=== PATIENT | male | born 1975 | race Hispanic/Latino ===

== ENCOUNTER 2019-06-05 20:29 | Emergency (ER) | payer OTHER ==
[~2019-06-05] VITALS: Ht 175.3 cm; Wt 90.7 kg
--- OUTSIDE RECORDS SUMMARY | 2019-06-05 20:32 | XMS REPORT ---
Author Author [facility] Address Unknown Phone Unavailable Care Team Providers Care Standpipe Tender Name Role Phone Maeve DYER Unavailable Unavailable Payers Payer Name Policy Type Policy Number Effective Date Expiration Date Problems This patient has no known problems. Allergies, Adverse Reactions, Alerts Allergy Name Allergy Type Status Severity Reaction(s) Onset Date Inactive Date Treating Clinician Comments ibuprofen DA Active NM 2019-04-22 00:00:00 ibuprofen DA Active U 2018-11-11 00:00:00 No Known Allergies DA Active U 2018-03-09 00:00:00 No Known Allergies DA Active U 2017-12-03 00:00:00 Medications This patient has no known medications. Encounters Start Date/Time End Date/Time Encounter Type Admission Type Attending [facility] Care Department Encounter ID 2018-08-21 22:34:00 2018-08-21 22:34:00 Emergency E [id number] Results Test Description Test Time Test Comments Text Results Atomic Results Result Comments - XR CHEST 1 V 2019-04-22 16:30:00 Patient Name: KATTY WEAVER Unit No: [id number] EXAMS: CPT CODE: [id number] XR CHEST 1 V 59703 PORTABLE CHEST April 22, 2019 9:08 AM COMMENT: COMPARISON: November 22, 2018 There is no evidence for pneumothorax. This is an expiratory examination. at 1630 Reported and signed by: Chang Boyer MD CC: Jasvir Salazar MD Technologist: MAICOL COOPER RT(R) Transcribed D/ (8640) [facility] NAME: KATTY WEAVER [address] [place] [address] PHYS: Jasvir Boggs MD : 1975 AGE: 43 SEX: M [place] [address] LOC: CAT PHONE #: [phone] EXAM DATE: 04/22/2019 STATUS: REG [facility] FAX #: [phone] RAD #: D/C DT PAGE 1 Signed Report Patient Name: KATTY WEAVER Unit No: [id number] EXAMS: CPT CODE: [id number] XR CHEST 1 V 19832 <Continued> Orig Print D/T: S: 04/22/2019 (5663) [facility] [place] [facility] NAME: REVA WEAVERE NAI [address] [place] [address] PHYS: Jasvir Boggs MD : 1975 AGE: 43 SEX: M [place] [address] LOC: CAT PHONE #: [phone] EXAM DATE: 04/22/2019 STATUS: REG [facility] FAX #: [phone] RAD #: D/C DT PAGE 2 Signed Report - XR FLUORO FOR SPINE INJ 2019-04-22 12:31:00 Patient Name: KATTY WEAVER Unit No: [id number] EXAMS: CPT CODE: [id number] XR FLUORO FOR SPINE INJ 04263 THORACIC TRANSFORAMINAL INJECTION REFERRING PHYSICIAN: PREOPERATIVE DIAGNOSIS: Degenerative thoracic disc disease POSTOPERATIVE DIAGNOSIS: Left T7 radiculopathy PROCEDURES PERFORMED: Fluoroscopically guided needle localization of the left T7 spinal nerve with transforaminal epidural steroid injection/injections. 2. Transforaminal epidurogram/epidurograms at left T7. FINDINGS: Good spread 100% relief ANTIBIOTIC: Cefazolin ESTIMATED BLOOD LOSS: Minimal ANESTHESIA: (TIVA) Total intravenous anesthetic (patient intolerant to sedatives and hypnotics) COMPLICATIONS: None DETAILS OF PROCEDURE: After obtaining stable vital signs, informed consent and IV access, with no known contraindications to proceeding, the patient was taken to the fluoroscopy suite and placed in a prone position with all extremities padded and appropriate monitors placed. A sterile prep and drape was performed over the thoracic spine. Using fluoroscopic visualization at each level the insertion site was marked for a paravertebral approach to the foramen.It should be noted that the needle was medial to the head of the rib. Using standard technique, a 27 gauge needle was advanced to the base of the pedicle. It should be noted that the needle was always medial to the head of the rib. In AP view, final positioning was obtained outside the 6 on the clock position on the pedicle. Then, 1 ml of Isovue-300 contrast was injected to produce the epidurograms. No paresthesias were elicited with needle insertion or injection and there were no signs of intravascular or intrathecal uptake. Then, 0.5 ml of 4% lidocaine was injected as a test dose with no signs of intravascular or intrathecal uptake. Next, 1 ml of 4% lidocaine and 10 mg of Decadron was injected incrementally with frequent negative aspirations. There were no signs of intravascular or intrathecal uptake. Each subsequent level was done using the same technique and medications. The patient's vital signs remained stable. The patient was taken to the PACU in good condition. at 1231 Reported and signed by: Jasvir Salazar M.D. [facility] NAME: KATTY WEAVER [address] [facility] PHYS: Jasvir Boggs MD [place], [place] [address] : 1975 AGE: 43 SEX: M LOC: JuniorDEVON PHONE #: [phone] EXAM DATE: 04/22/2019 STATUS: REG [facility] FAX #: [phone] RAD #: D/C DT PAGE 1 Signed Report (CONTINUED) Patient Name: KATTY WEAVER NAI Unit No: [id number] EXAMS: CPT CODE: [id number] XR FLUORO FOR SPINE INJ 63771 <Continued> CC: Technologist: Shivani Dominique(R) Transcribed D/ (1231) tBEAUUVD [facility] NAME: KATTY WEAVER [address] [facility] PHYS: Jasvir Boggs MD [place], [place] [address] : 1975 AGE: 43 SEX: M LOC: CAT PHONE #: [phone] EXAM DATE: 04/22/2019 STATUS: REG [place] FAX #: [phone] RAD #: D/C DT PAGE 2 Signed Report Patient Name: KATTY WEAVER Unit No: [id number] EXAMS: CPT CODE: [id number] XR FLUORO FOR SPINE INJ 78417 <Continued> Orig Print D/T: S: 04/22/2019 (1234) [facility] NAME: AKTTY WEAVER [address] [place] [address] PHYS: SRIDEVI - Jasvir Salazar MD [place] [address] : 1975 AGE: 43 SEX: M LOC: CAT PHONE #: [phone] EXAM DATE: 04/22/2019 STATUS: REG [facility] FAX #: [phone] RAD #: D/C DT PAGE 3 Signed Report - XR CHEST 1 V 2018-11-12 16:42:00 Patient Name: KATTY WEAVER Unit No: [id number] EXAMS: CPT CODE: [id number] XR CHEST 1 V 01043 PORTABLE CHEST NOVEMBER 22, 2018 8:27 AM COMMENT: COMPARISON: March 10, 2018 There is no evidence for pneumothorax. at 1642 Reported and signed by: Chang Boyer MD CC: Jasvir Salazar MD Technologist: CARLIE BABIN RT(R) Transcribed D/ (1092) tWILDA [facility] NAME: KATTY WEAVER [address] [facility] PHYS: SRIDEVI - Jasvir Salazar MD : 1975 AGE: 43 SEX: M [place] [address] LOC: CAT PHONE #: [phone] EXAM DATE: 11/12/2018 STATUS: REG [facility] FAX #: [phone] RAD #: D/C DT PAGE 1 Signed Report Patient Name: KATTY WEAVER Unit No: [id number] EXAMS: CPT CODE: [id number] XR CHEST 1 V 12083 <Continued> Orig Print D/T: S: 11/12/2018 (1645) [facility] NAME: KATTY WEAVER [address] [facility] PHYS: DOCUD - DoctorJasvir MD : 1975 AGE: 43 SEX: M [place], [place] [address] LOC: JuniorDEVON PHONE #: [phone] EXAM DATE: 11/12/2018 STATUS: REG SDC FAX #: [phone] RAD #: D/C DT PAGE 2 Signed Report - XR FLUORO FOR SPINE INJ 2018-11-12 09:00:00 Patient Name: KATTY WEAVER Unit No: [id number] EXAMS: CPT CODE: [id number] XR FLUORO FOR SPINE INJ 51565 THORACIC TRANSFORAMINAL INJECTION REFERRING PHYSICIAN: PREOPERATIVE DIAGNOSIS: Degenerative thoracic disc disease POSTOPERATIVE DIAGNOSIS: Left thoracic radiculopathy PROCEDURES PERFORMED: Fluoroscopically guided needle localization of the left T7 spinal nerve with transforaminal epidural steroid injection/injections. 2. Transforaminal epidurogram/epidurograms at left T7. FINDINGS: Concordant provocation excellent filling 100% relief ANTIBIOTIC: Cefazolin ESTIMATED BLOOD LOSS: Minimal ANESTHESIA: (TIVA) Total intravenous anesthetic (patient intolerant to sedatives and hypnotics) COMPLICATIONS: None DETAILS OF PROCEDURE: After obtaining stable vital signs, informed consent and IV access, with no known contraindications to proceeding, the patient was taken to the fluoroscopy suite and placed in a prone position with all extremities padded and appropriate monitors placed. A sterile prep and drape was performed over the thoracic spine. Using fluoroscopic visualizat ion at each level the insertion site was marked for a paravertebral approach to the foramen.It should be noted that the needle was medial to the head of the rib. Using standard technique, a 27 gauge needle was advanced to the base of the pedicle. It should be noted that the needle was always medial to the head of the rib. In AP view, final positioning was obtained outside the 6 on the clock position on the pedicle. Then, 1 ml of Isovue-300 contrast was injected to produce the epidurograms. No paresthesias were elicited with needle insertion or injection and there were no signs of intravascular or intrathecal uptake. Then, 0.5 ml of 4% lidocaine was injected as a test dose with no signs of intravascular or intrathecal uptake. Next, 1 ml of 4% lidocaine and 10 mg of Decadron was injected incrementally with frequent negative aspirations. There were no signs of intravascular or intrathecal uptake. Each subsequent level was done using the same technique and medications. The patient's vital signs remained stable. The patient was taken to the PACU in good condition. at 0900 Reported and signed by: Jasvir Salazar M.D. [facility] NAME: KATTY WEAVER [address] [facility] PHYS: Jasvir Boggs MD [place] [address] : 1975 AGE: 43 SEX: M LOC: CAT PHONE #: [phone] EXAM DATE: 11/12/2018 STATUS: REG [facility] FAX #: [phone] RAD #: D/C DT PAGE 1 Signed Report (CONTINUED) Patient Name: KATTY WEAVER Unit No: [id number] EXAMS: CPT CODE: [id number] XR FLUORO FOR SPINE INJ 36939 <Continued> CC: Technologist: Shivani Dominique(R) Transcribed D/ (899) Liban [facility] NAME: KATTY WEAVER NAI [address] [facility] PHYS: Jasvir Boggs MD [place] [id number] : 1975 AGE: 43 SEX: M LOC: CAT PHONE #: [phone] EXAM DATE: 11/12/2018 STATUS: REG [facility] FAX #: [phone] RAD #: D/C DT PAGE 2 Signed Report Patient Name: KATTY WEAVER Unit No: [id number] EXAMS: CPT CODE: [id number] XR FLUORO FOR SPINE INJ 79506 <Continued> Orig Print D/T: S: 11/12/2018 (0903) [facility] NAME: KATTY WEAVER [address] [facility] PHYS: DOCUD - Doctor,Jasvir Li MD [place], [place] [address] : 1975 AGE: 43 SEX: M LOC: CAT PHONE #: [phone] EXAM DATE: 11/12/2018 STATUS: REG [facility]C FAX #: [phone] RAD #: D/C DT PAGE 3 Signed Report KNEE LEFT THREE VIEWS [place] [address] Patient Name: KATTY WEAVER MR #: [id number] : 1975 Age/Sex: 41/M Req #: [id number] [facility] Physician: Ordered by: LORNA DYER MD Report #: [id number] Location: ER Room/Bed: Procedure: [id number] DX/KNEE LEFT THREE VIEWS Exam Date: 12/02/16 Exam Time: 1035 REPORT STATUS: Signed PROCEDURE: X-RAY LEFT KNEE, THREE OR MORE VIEWS COMPARISON: None. INDICATIONS: TWISTED LEFT KNEE, PAIN FINDINGS: The bones are well-mineralized. There are no acute, displaced fractures, subluxations, lytic or blastic lesions. Joint spaces are well-preserved. There is no evidence of a joint effusion. CONCLUSION: Unremarkable left knee radiograph. Preliminary report provided by Dr. Rose 12/02/2016 at 1104 hrs. Dwain Rose M.D. Dictated by: Dwain Rose M.D. on 12/03/2016 at 13:48 Electronically approved by: Dwain Rose M.D. on 12/03/2016 at 13:48 Dictated By: DWAIN ROSE MD 1348 Transcribed By: SHADE on 12/03/16 1341 COPY TO: LORNA DYER MD
[2019-06-05] MEDS ORDERED: SODIUM CHLORIDE 0.9% 1000ML 1,000 ML IV STA (20:51)
[2019-06-05] MEDS ORDERED: HYDROCODONE/APAP 5MG-325MG TAB PO ONE (21:00)
[2019-06-05] MEDS ORDERED: KETOROLAC TROMETHAMINE 30 MG/ML VIAL IV ONE (21:00)
[2019-06-05] MEDS ORDERED: ONDANSETRON HCL INJ 2MG/ML 2ML 2 MG/ML VIAL IV ONE (21:00)
[2019-06-05] MEDS ORDERED: KETOROLAC TROMETHAMINE 30 MG/ML VIAL ONE (21:04)
[2019-06-05] MEDS ORDERED: ONDANSETRON HCL INJ 2MG/ML 2ML 2 MG/ML VIAL ONE (21:04)
[2019-06-05] MEDS ORDERED: SODIUM CHLORIDE 0.9% 1000ML 1,000 ML ONE (21:04)
[2019-06-05] MEDS ORDERED: HYDROCODONE/APAP 5MG-325MG TAB ONE (21:04)
--- NOTE | 2019-06-05 21:16 | Diagnostic Imaging Report ---
EXAMINATION: PA and lateral views of the chest. COMPARISON: None CLINICAL HISTORY: Cough, fever DISCUSSION: Lungs are well-inflated. Patchy left lower lobe airspace disease laterally. No pleural effusion or pneumothorax. Tortuous thoracic aorta. Normal heart size. No pulmonary edema. No acute osseous abnormalities. IMPRESSION: Patchy left lower lobe airspace disease is concerning for pneumonia in the clinical setting of cough and fever. Follow-up chest radiograph in 8 weeks is suggested to document resolution after appropriate treatment. Signed by: Dr. Олег Mcclure M.D. on 06/05/2019 9:13 PM
[2019-06-05] MEDS ORDERED: CEFTRIAXONE SOD 1 GM VIAL IV ONE (21:30)
== END 2019-06-05 21:55 | disposition home or self-care (01) ==
LOC: FSED 20:29
DX: R50.9 Fever, unspecified (principal); R05 Cough; J09.X1 Influenza due to identified novel influenza A virus with pneumonia; J15.9 Unspecified bacterial pneumonia
CPT/HCPCS: 71046; 80053; 85025; 99284; J1885; J2405; J7030

== ENCOUNTER 2024-04-01 10:14 | Emergency (ER) | payer OTHER ==
[~2024-04-01 10:14] MED LIST: DOXYCYCLINE HY100 MG PO; KETOROLAC TROME10 MG PO
[2024-04-01 11:28] LABS: BASOPHILS % 0.5 % (0.0-1.0); EOSINOPHILS # (AUTO) 0.3 (0.0-0.4); EOSINOPHILS % 4.1 % (0.0-6.0); HEMOGLOBIN 17.2 g/dL (14.0-18.0); LYMPHOCYTES # (AUTO) 1.7 (1.0-3.2); LYMPHOCYTES % 22.9 % (18.0-39.1); MEAN CORPUSCULAR HEMOGLOBIN 31.7 pg (28-32); MEAN CORPUSCULAR HGB CONC 31.9 g/dL (31-35); MEAN CORPUSCULAR VOLUME 99.4 fL (81-99); MONOCYTES # (AUTO) 0.5 (0.2-0.8); MONOCYTES % 6.9 % (4.4-11.3); NEUTROPHILS # (AUTO) 4.9 (2.1-6.9); NEUTROPHILS % 65.3 % (38.7-80.0); PLATELET COUNT 214 x10e3/uL (140-360); RED BLOOD COUNT 5.43 x10e6/uL (4.3-5.7); RED CELL DISTRIBUTION WIDTH 13.6 % (11.7-14.4)
[2024-04-01 11:42] LABS: BILIRUBIN,URINE NEGATIVE (NEGATIVE); CLARITY,URINE CLEAR (CLEAR); COLOR,URINE YELLOW (YELLOW); GLUCOSE, URINE NEGATIVE (NEGATIVE); KETONES,URINE NEGATIVE (NEGATIVE); LEUKOCYTE ESTERASE ,URINE NEGATIVE (NEGATIVE); NITRITE,URINE NEGATIVE (NEGATIVE); PH,URINE 5.5 (5 - 7); PROTEIN,URINE DIPSTICK NEGATIVE (NEGATIVE); URINE UROBILINOGEN 0.2 mg/dL (0.2 - 1)
[2024-04-01] MEDS: ONDANSETRON HCL INJ 2MG/ML 2ML 2 MG/ML VIAL IV STA (11:45)
[2024-04-01] MEDS: SODIUM CHLORIDE 0.9% 1000ML 1,000 ML IV STA (11:45)
[2024-04-01 11:49] LABS: BACTERIA,URINE FEW /HPF; EPITHELIAL CELLS,URINE FEW /LPF; RBC,URINE 0-5 /HPF (0-5); WBC,URINE (MAN) 0-5 /HPF (0-5)
[2024-04-01 11:55] LABS: ALBUMIN 4.2 g/dL (3.5-5.0); ALBUMIN/GLOBULIN RATIO 1.2 (0.8-2.0); ANION GAP 14.7 mmol/L (8-16); BILIRUBIN,TOTAL 0.5 mg/dL (0.2-1.2); CALCIUM 9.3 mg/dL (8.4-10.2); CREATININE, SERUM 1.24 mg/dL (0.72-1.25); POTASSIUM 3.7 mmol/L (3.5-5.1); TOTAL PROTEIN 7.6 g/dL (6.5-8.1)
[2024-04-01] MEDS ORDERED: IOPAMIDOL 370 MG/ML 100 ML INFUS..BTL INJ ONE (12:08)
[2024-04-01 13:03] VITALS: PULSE 72; RESP 16; TEMP 98.4
[2024-04-01] MEDS ORDERED: ULTRAM 50MG50 MG PO (13:09)
[2024-04-01] MEDS ORDERED: ONDANSETRON ODT4 MG PO (13:11)
[2024-04-01] MEDS: KETOROLAC TROMETHAMINE 30 MG/ML VIAL IV STA (13:16)
[2024-04-01 13:56] VITALS: BP 132/85; PULSE 89; RESP 17; TEMP 98.4; O2SAT 96
== END 2024-04-01 13:59 | disposition home or self-care (01) ==
LOC: ER 10:24
DX: R10.33 Periumbilical pain (principal); I10 Essential (primary) hypertension; E78.5 Hyperlipidemia, unspecified
CPT/HCPCS: 36415; 74177; 80053; 81001; 85025; 99283; J1885; J2405; J7030; Q9967